=== PATIENT | female | born 1995 | race Caucasian/White ===

== ENCOUNTER 2019-09-12 18:03 | Emergency (ER) | payer SELFPAY ==
--- OUTSIDE RECORDS SUMMARY | 2019-09-12 18:05 | XMS REPORT ---
:1995 [facility] Address [address] [place] [address] [address] [place] [address] Care Team Providers Name Role Phone Unavailable Unavailable Unavailable Problems This patient has no known problems. Allergies, Adverse Reactions, Alerts This patient has no known allergies or adverse reactions. Medications This patient has no known medications.
[2019-09-12 19:03] LABS: Basophils % 0.6 % (0-1.3); Hematocrit 32.6 % (36.0-45.0); Lymphocytes % 42.7 % (15.3-44.8); MPV 8.4 fL (7.6-11.3)
--- NOTE | 2019-09-12 19:09 | ER ---
Nurse's Notes [facility] Name: Romana Grover Age: 23 yrs Sex: Female : 1995 Arrival Date: 09/12/2019 Time: 18:07 Bed 30 Private MD: None, None Diagnosis: Herpesviral [herpes simplex] infections;Abnormal uterine and vaginal bleeding, unspecified Presentation: 09/12 18:19 Presenting complaint: Patient states: had a period for 5 months and rash in genital iw area X 2 weeks. 18:22 Transition of care: patient was not received from another setting of care. Onset of iw symptoms was March 2019. Risk Assessment: Do you want to hurt yourself or someone else? Patient reports no desire to harm self or others. Initial Sepsis Screen: Does the patient meet any 2 criteria? No. Patient's initial sepsis screen is negative. Does the patient have a suspected source of infection? No. Patient's initial sepsis screen is negative. Care prior to arrival: None. 18:22 Method Of Arrival: Ambulatory iw 18:22 Acuity: JES 4 iw Triage Assessment: 19:15 General: Appears in no apparent distress. Behavior is calm. 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 - Ebola Screening: : Patient negative for fever greater than or equal to 101.5 degrees Fahrenheit, and additional compatible Ebola Virus Disease symptoms Patient denies exposure to infectious person Patient denies travel to an Ebola-affected area in the 21 days before illness onset No symptoms or risks identified at this time. - Social history:: Smoking status: unknown. Screenin:10 Abuse screen: Denies threats or abuse. Denies injuries from another. Nutritional iw screening: No deficits noted. Tuberculosis screening: No symptoms or risk factors identified. Fall Risk None identified. Assessment: 18:35 General: Appears in no apparent distress. Behavior is calm, cooperative. Pain: iw Complains of pain in pelvis and groin. Neuro: Level of Consciousness is awake, alert, obeys commands, Oriented to person, place, time, situation, Moves all extremities. Full function. Cardiovascular: Patient's skin is warm and dry. Respiratory: Respiratory effort is even, unlabored, Respiratory pattern is regular. Derm: Skin is intact, is healthy with good turgor. Musculoskeletal: Range of motion: intact in all extremities. Vital Signs: 18:32 BP 116 / 73; Pulse 88; Resp 16; Temp 97.7; Pulse Ox 99% on R/A; Weight 99.79 kg; Height iw 5 ft. 6 in. (167.64 cm); 18:34 BP 120 / 65 Supine; Pulse 75; Resp 18; Pulse Ox 100% on R/A; mg2 18:34 BP 123 / 73 Sitting; Pulse 81; Resp 18; Pulse Ox 100% on R/A; mg2 18:34 BP 114 / 63 Standing; Pulse 95; Resp 18; Pulse Ox 100% on R/A; mg2 18:32 Body Mass Index 35.51 (99.79 kg, 167.64 cm) iw ED Course: 18:07 Patient arrived in ED. mr 18:07 None, None is Private Physician. mr 18:08 [facility] kb 18:08 Hugo Rowan MD is Attending Physician. kb 18:18 Leyda Fowler, ALEX is Primary Nurse. iw 18:23 Triage completed. iw 18:35 Arm band placed on. iw 19:00 Patient has correct armband on for positive identification. mg2 19:15 No provider procedures requiring assistance completed. Patient did not have IV access iw during this emergency room visit. Administered Medications: 19:14 Drug: Valtrex 1000 mg Route: PO; mg2 19:16 Follow up: Response: No adverse reaction; Medication administered at discharge. mg2 Outcome: 19:08 Discharge ordered by . kb 19:15 Discharged to home ambulatory, with family. iw 19:15 Condition: good 19:15 Discharge instructions given to patient, family, Instructed on discharge instructions, follow up and referral plans. medication usage, Demonstrated understanding of instructions, follow-up care, medications, Prescriptions given X 1. 19:16 Patient left the ED. mg2 Signatures: Nat Waggoner FNP-C FNP-Moy Helen Morrow mr Leyda Fowler, RN RN iw Sidney Singh RN RN mg2 Corrections: (The following items were deleted from the chart) 18:23 18:19 Presenting complaint: Patient states: had a period for 5 months iw iw
--- NOTE | 2019-09-12 19:09 | EDPHYS ---
Physician Documentation [facility] Name: Romana Grover Age: 23 yrs Sex: Female : 1995 Arrival Date: 09/12/2019 Time: 18:07 Bed 30 Private MD: None, None ED Physician Hugo Rowan HPI: 09/12 19:06 This 23 yrs old Female presents to ER via Ambulatory with complaints of kb Vaginal Pain. 19:06 The patient presents with vaginal bleeding that is moderate, rash/pain. Onset: The kb symptoms/episode began/occurred 5 month(s) ago. Modifying factors: The symptoms are alleviated by nothing, the symptoms are aggravated by movement. Associated signs and symptoms: Pertinent positives: vaginal bleeding. Severity of symptoms: At their worst the symptoms were moderate, in the emergency department the symptoms are unchanged. The patient is sexually active, reportedly has a single partner. The patient has not experienced similar symptoms in the past. The patient has not recently seen a physician. Pt reports she has been on her period for 5 months. States she developed a rash 2 weeks ago that is getting worse. Came in today because the pain from the rash was intolerable. . 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 - Ebola Screening: : Patient negative for fever greater than or equal to 101.5 degrees Fahrenheit, and additional compatible Ebola Virus Disease symptoms Patient denies exposure to infectious person Patient denies travel to an Ebola-affected area in the 21 days before illness onset No symptoms or risks identified at this time. - Social history:: Smoking status: unknown. ROS: 19:05 Constitutional: Negative for fever, chills, and weight loss, Neck: Negative for injury, kb pain, and swelling, Cardiovascular: Negative for chest pain, palpitations, and edema, Respiratory: Negative for shortness of breath, cough, wheezing, and pleuritic chest pain, Abdomen/GI: Negative for abdominal pain, nausea, vomiting, diarrhea, and constipation, Back: Negative for injury and pain, MS/Extremity: Negative for injury and deformity, Skin: Negative for injury, rash, and discoloration, Neuro: Negative for headache, weakness, numbness, tingling, and seizure. 19:05 : Positive for menstrual abnormality, vaginal rash/pain. Exam: 19:05 Constitutional: This is a well developed, well nourished patient who is awake, alert, kb and in no acute distress. Head/Face: Normocephalic, atraumatic. Neck: Trachea midline, no thyromegaly or masses palpated, and no cervical lymphadenopathy. Supple, full range of motion without nuchal rigidity, or vertebral point tenderness. No Meningismus. Chest/axilla: Normal chest wall appearance and motion. Nontender with no deformity. No lesions are appreciated. Cardiovascular: Regular rate and rhythm with a normal S1 and S2. No gallops, murmurs, or rubs. Normal PMI, no JVD. No pulse deficits. Respiratory: Lungs have equal breath sounds bilaterally, clear to auscultation and percussion. No rales, rhonchi or wheezes noted. No increased work of breathing, no retractions or nasal flaring. Abdomen/GI: Soft, non-tender, with normal bowel sounds. No distension or tympany. No guarding or rebound. No evidence of tenderness throughout. Back: No spinal tenderness. No costovertebral tenderness. Full range of motion. MS/ Extremity: Pulses equal, no cyanosis. Neurovascular intact. Full, normal range of motion. Neuro: Awake and alert, GCS 15, oriented to person, place, time, and situation. Cranial nerves II-XII grossly intact. Motor strength 5/5 in all extremities. Sensory grossly intact. Cerebellar exam normal. Normal gait. 19:05 Skin: rash can be described as ulcerative, on the groin. Vital Signs: 18:32 BP 116 / 73; Pulse 88; Resp 16; Temp 97.7; Pulse Ox 99% on R/A; Weight 99.79 kg; Height iw 5 ft. 6 in. (167.64 cm); 18:34 BP 120 / 65 Supine; Pulse 75; Resp 18; Pulse Ox 100% on R/A; mg2 18:34 BP 123 / 73 Sitting; Pulse 81; Resp 18; Pulse Ox 100% on R/A; mg2 18:34 BP 114 / 63 Standing; Pulse 95; Resp 18; Pulse Ox 100% on R/A; mg2 18:32 Body Mass Index 35.51 (99.79 kg, 167.64 cm) MDM: 18:08 Patient medically screened. kb 19:00 Data reviewed: vital signs, nurses notes. Data interpreted: Pulse oximetry: on room air kb is 100 %. Interpretation: normal. ED course: Blood drawn and sent to lab . 19:05 Counseling: I had a detailed discussion with the patient and/or guardian regarding: the kb historical points, exam findings, and any diagnostic results supporting the discharge/admit diagnosis, lab results, the need for outpatient follow up, an OB/Gyne specialist, to return to the emergency department if symptoms worsen or persist or if there are any questions or concerns that arise at home. 09/12 18:36 Order name: CBC with Diff; Complete Time: 19:05 kb 09/12 18:18 Order name: Orthostatics; Complete Time: 18:33 kb Administered Medications: 19:14 Drug: Valtrex 1000 mg Route: PO; mg2 19:16 Follow up: Response: No adverse reaction; Medication administered at discharge. mg2 Disposition: 09/12/19 19:08 Discharged to Home. Impression: Herpesviral [herpes simplex] infections, Abnormal uterine and vaginal bleeding, unspecified. - Condition is Stable. - Discharge Instructions: Genital Herpes, Menorrhagia, [id number]. - Prescriptions for Valtrex 1 g Oral Tablet - take 1 tablet by ORAL route every 12 hours for 10 days; 20 tablet. - Medication Reconciliation Form, Thank You Letter, Antibiotic Education, Prescription Opioid Use form. - Follow up: Private Physician; When: 2 - 3 days; Reason: Recheck today's complaints, Continuance of care, Re-evaluation by your physician. Follow up: Emergency Department; When: As needed; Reason: Worsening of condition. Addendum: 09/18/2019 07:07 Co-signature as Attending Physician, Hugo Rowan MD. r n Signatures: Dispatcher [employer] EDMS Nat Waggoner, TONY-Haley CANALESP-Leyda Smalls RN RN iw Nieto, Roman, MD MD rn Gardose, Michele, RN RN mg2 Corrections: (The following items were deleted from the chart) 09/12 19:16 19:08 09/12/2019 19:08 Discharged to Home. Impression: Herpesviral [herpes simplex] mg2 infections; Abnormal uterine and vaginal bleeding, unspecified. Condition is Stable. Discharge Instructions: Genital Herpes, Menorrhagia, [id number]. Prescriptions for Valtrex 1 g Oral Tablet - take 1 tablet by ORAL route every 12 hours for 10 days; 20 tablet. and Forms are Medication Reconciliation Form, Thank You Letter, Antibiotic Education, Prescription Opioid Use. Follow up: Private Physician; When: 2 - 3 days; Reason: Recheck today's complaints, Continuance of care, Re-evaluation by your physician. Follow up: Emergency Department; When: As needed; Reason: Worsening of condition. kb
[2019-09-12] MEDS ORDERED: VALACYCLOVIR 500 MG TAB ONE (19:13)
[2019-09-12 22:15] VITALS: BP 114/63; O2SAT 100
[2019-09-12 22:35] VITALS: TEMP 97.7
== END 2019-09-12 19:16 | disposition home or self-care (01) ==
LOC: ER 18:03
DX: B00.9 Herpesviral infection, unspecified (principal); N93.9 Abnormal uterine and vaginal bleeding, unspecified; Z88.0 Allergy status to penicillin; Z88.6 Allergy status to analgesic agent
CPT/HCPCS: 36415; 85025; 99283

== ENCOUNTER 2022-12-03 12:16 | Emergency (ER) | payer SELFPAY ==
--- OUTSIDE RECORDS SUMMARY | 2022-12-03 12:42 | XMS REPORT | Continuity of Care Document ---
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 HEMOGLOBIN A1c (test code = 69572) 4.8 % 4.2-5.6 HEPATITIS PANEL, [id number] 04:33:58 Test Item Value Reference Interpretation Comments Range HEPATITIS A TOTAL REACTIVE NON-REACTIVE A AB (test code = 2725) HEPATITIS B SURF AG NON-REACTIVE NON-REACTIVE (test code = 2739) HEP B CORE TOTAL AB NON-REACTIVE NON-REACTIVE (test code = 2729) HEPATITIS B SURFACE REACTIVE NON-REACTIVE A AB (test code = 2737) HEPATITIS C NON-REACTIVE NON-REACTIVE ANTIBODY (test code = 4675) INTERPRETATION (NOTE) Hepatitis A serology HEPATITIS A: (test consisten t with past code = 2552) exposure or previousvaccina tion to hepatitis A vir us. No evidence of cur rent acutehepatitis A infection. INTERPRETATION (NOTE) Hepatitis B serology HEPATITIS B: (test consisten t with immunity code = 50812) to hepatitis B from previous hepati tis B vaccination. INTERPRETATION (NOTE) Hepatitis C serology HEPATITIS C: (test shows no evidence of code = 42324) exposure to he patitisC virus at this t manuel. It can take up to 12 months after exposure tothe hepatitis C vir us for antibodies to b ecome detectable in t he blood in certain tavo ents. HEPATITIS A [id number] 04:33:58 Test Item Value Reference Range Interpretation Comments HEPATITIS A IgM NON-REACTIVE NON-REACTIVE UNLESS OTHE RWISE (test code = 2728) INDICATED , ALL TESTING PERFORMED [facility], [facility]. [address] [place] [address] DIRECTOR: MICHAEL GUTIERREZ M.D. CLIA NUMBER [id number] CAP ACCREDITATION N O. [id number] CBC W/AUTO DIFF WITH [id number] 04:24:39 Test Item Value Reference Range Interpretation Comments WBC (test code = 5.1 K/UL 3.5-11.0 1001) RBC (test code = 4.81 M/UL 3.80-5.40 1002) HEMOGLOBIN (test code 13.5 G/DL 11.5-15.5 = 1003) HEMATOCRIT (test code 39.5 % 34.0-45.0 = 1004) MCV (test code = 82.1 fL 80.0-99.0 1005) MCH (test code = 28.1 PG 25.0-33.0 1006) MCHC (test code = 34.2 G/DL 31.0-36.0 1007) RDW (test code = 13.1 % 11.5-15.0 1038) NEUTROPHILS (test 53.4 % code = 1008) LYMPHOCYTES (test 38.5 % code = 1010) MONOCYTES (test code 6.1 % = 1011) EOSINOPHILS (test 1.0 % code = 1012) BASOPHILS (test code 0.4 % = 1013) IMMATURE GRANULOCYTES 0.6 % (test code = 1036) NUCLEATED RBCS (test 0.0 /100 WBC'S See_Comment [Aut omated code = 1065) message] The sy stem which generated this result transmitted reference range : 0.0. The refere nce range was not u sed to interpret th is result as normal/abnormal . PLATELET COUNT (test 291 K/UL 130-400 code = 1015) ABSOLUTE NEUTROPHILS 2.74 K/UL 1.50-7.50 (test code = 1066) ABSOLUTE LYMPHOCYTES 1.97 K/UL 1.00-4.00 (test code = 1067) ABSOLUTE MONOCYTES 0.31 K/UL 0.20-1.00 (test code = 1068) ABSOLUTE EOSINOPHILS 0.05 K/UL 0.00-0.50 (test code = 1040) ABSOLUTE BASOPHILS 0.02 K/UL 0.00-0.20 (test code = 1069) ABS IMMATURE 0.03 K/UL 0.00-0.10 GRANULOCYTES (test code = 1020) ABS NUCLEATED RBCS 0.00 K/UL 0.00-0.11 (test code = 98862) CT, [id number] 21:27:00Unlisted Reason for Exam - Click Yes and Enter Reason Below->YesUnlisted Reason for Exam->diarrheaIs this for enterography?->NoWill this procedure require oral contrast?->No [facility] 1995 Sex: FFINAL REPORT TECHNIQUE: CT of the abdomen and pelvis WITH intravenous contrast and WITHOUT oral contrast. Dose modulation, iterative reconstruction, and/or weight-based adjustment of the mA/kV was utilized to reduce the radiation dose to as low as reasonably achievable. INDICATION: Abdominal pain, acute, nonlocalizedUnlisted Reason for Examdiarrhea. COMPARISON: None. FINDINGS: LOWER THORAX: Unremarkable. HEPATOBILIARY: No focal hepatic lesions. Gallbladder is unremarkable. No abnormal biliary ductal dilatation.SPLEEN: Splenomegaly with spleen measuring 14.2 cm in craniocaudal dimension.ADRENALS: No adrenal nodules. PANCREAS: No focal masses or ductal dilatation.LYMPH NODES: No lymphadenopathy.KIDNEYS/URETERS: No hydronephrosis, stones, or masses.PELVIC ORGANS/BLADDER: Unremarkable. VESSELS: Unremarkable.PERITONEUM/RETROPERITONEUM: No free air or fluid. GI TRACT: No distention or wall thickening. Normal appendix. BONES AND SOFT TISSUES: Unremarkable. IMPRESSION: 1. Splenomegaly.2. No renal, ureteral or bladder stone.3. Normal appendix. Signed: Jose Marrero MDReport Verified Date/Time: 01/30/2022 21:27:26 [id number] 20:47:10 Test Item Value Reference Range Interpretation Comments LIPASE (BEAKER) (test code = 749) 15 U/L 6-51 Head Of Partner Development ID - [id number] ID - [id number] ID - [id number] ID - [id number] ID - [id number] METABOLIC [id number] 20:47:04 Test Item Value Reference Range Interpretation Comments TOTAL PROTEIN 7.0 gm/dL 6.0-8.5 (BEAKER) (test code = 770) ALBUMIN (BEAKER) 4.0 g/dL 3.5-5.0 (test code = 1145) ALKALINE PHOSPHATASE 90 U/L 30-115 (BEAKER) (test code = 346) BILIRUBIN TOTAL 0.6 mg/dL 0.1-1.2 (BEAKER) (test code = 377) SODIUM (BEAKER) (test 140 meq/L 135-148 code = 381) POTASSIUM (BEAKER) 3.7 meq/L 3.6-5.5 (test code = 379) CHLORIDE (BEAKER) 106 meq/L 98-106 (test code = 382) CO2 (BEAKER) (test 22 meq/L 20-29 code = 355) BLOOD UREA NITROGEN 7 mg/dL 10-26 L (BEAKER) (test code = 354) CREATININE (BEAKER) 0.74 mg/dL 0.50-1.20 (test code = 358) GLUCOSE RANDOM 78 mg/dL 70-110 (BEAKER) (test code = 652) CALCIUM (BEAKER) 8.5 mg/dL 8.5-10.5 (test code = 697) AST (SGOT) (BEAKER) 42 U/L 5-40 H (test code = 353) ALT (SGPT) (BEAKER) 75 U/L 5-50 H (test code = 347) EGFR (BEAKER) (test 95 mL/min/1.73 ESTIMA EDGARD GFR IS code = 1092) sq m NOT ACCURATE CREATININE CLEARANCE IN PREDICTING GLOMERULAR FILTRATION RATE . ESTIMATED GFR I S NOT APPLICABLE FOR DIALYSIS PATIEN TS. Head Of Partner Development ID - [id number] ID - [id number] ID - [id number] ID - [id number] ID - [id number] ID - [id number] ID - [id number] ID - [id number] ID - [id number] ID - [id number] ID - [id number] ID - [id number] ID - [id number] ID - [id number] ID - [id number] ID - [id number], serum, [id number] 20:25:43 Test Item Value Reference Range Interpretation Comments Preg Test, Serum (test code = Negative 2109-) [facility] serum, [id number] 20:25:43 Test Item Value Reference Range Interpretation Comments Preg Test, Serum (test code = Negative 0-5) [facility], SERUM, [id number] 20:25:43 Test Item Value Reference Range Interpretation Comments TEST SERUM (BEAKER) (test Negative code = 584) Urinalysis [id number] 20:22:15 Test Item Value Reference Range Interpretation Comments Color, UA (test code = Yellow 5778-6) Clarity, UA (test code = Clear 5767-9) Specific [place], UA 1.025 1.001-1.035 (test code = 5811-5) pH, UA (test code = 6.0 5.0-8.0 5803-2) Protein, UA (test code = Negative Negative 16713-2) Glucose, UA (test code = Negative Negative 365) Ketones, UA (test code = Negative Negative 2514-8) Bilirubin, UA (test code Negative Negative = 10592-8) Blood, UA (test code = Negative Negative 01151-6) Nitrite, UA (test code = Negative Negative 5802-4) Leukocytes, UA (test Small Negative A code = 5799-2) Urobilinogen, UA (test 1.0 mg/dL 0.2-1.0 code = 35777-7) Bacteria, UA (test code Few = 42810-0) Mucus (test code = Moderate 8247-9) RBC, UA (test code = <5 See_Comment [Autom ated message] 799-7) The system Serviceful generated this result transmit edgard reference range : /HPF. The refer ence range was not u sed to interpret th is result as normal/abnormal . WBC, UA (test code = 5-10 See_Comment [Autom ated message] 91020-8) The system Serviceful generated this result transmit edgard reference range : /HPF. The refer ence range was not u sed to interpret th is result as normal/abnormal . SQUAMOUS EPITHELIAL 5-10 See_Comment [Automa edgard message] (test code = 04384-7) The sy stem which generated this result transmit edgard reference range : /HPF. The refer ence range was not u sed to interpret th is result as normal/abnormal . Specimen Source (test code = 2795) Lab Interpretation (test Abnormal code = 52040-9) [facility]inalysis [id number] 20:22:15 Test Item Value Reference Range Interpretation Comments Color, UA (test code = Yellow 5778-6) Clarity, UA (test code = Clear 5767-9) Specific [place], UA 1.025 1.001-1.035 (test code = 5811-5) pH, UA (test code = 6.0 5.0-8.0 5803-2) Protein, UA (test code = Negative Negative 99194-4) Glucose, UA (test code = Negative Negative 365) Ketones, UA (test code = Negative Negative 2514-8) Bilirubin, UA (test code Negative Negative = 14659-8) Blood, UA (test code = Negative Negative 25873-4) Nitrite, UA (test code = Negative Negative 5802-4) Leukocytes, UA (test Small Negative A code = 5799-2) Urobilinogen, UA (test 1.0 mg/dL 0.2-1.0 code = 97746-0) Bacteria, UA (test code Few = 28946-4) Mucus (test code = Moderate 8247-9) RBC, UA (test code = <5 See_Comment [Autom ated message] 799-7) The system Serviceful generated this result transmit edgard reference range : /HPF. The refer ence range was not u sed to interpret th is result as normal/abnormal . WBC, UA (test code = 5-10 See_Comment [Autom ated message] 21658-1) The system Serviceful generated this result transmit edgard reference range : /HPF. The refer ence range was not u sed to interpret th is result as normal/abnormal . SQUAMOUS EPITHELIAL 5-10 See_Comment [Automa edgard message] (test code = 33431-6) The sy stem which generated this result transmit edgard reference range : /HPF. The refer ence range was not u sed to interpret th is result as normal/abnormal . Specimen Source (test code = 2795) Lab Interpretation (test Abnormal code = 61796-0) [facility] W/ [id number] 20:22:15 Test Item Value Reference Range Interpretation Comments COLOR (BEAKER) (test code = 470) Yellow CLARITY (BEAKER) (test code = 469) Clear SPECIFIC GRAVITY UA (BEAKER) (test 1.025 1.001-1.035 code = 468) PH UA (BEAKER) (test code = 467) 6.0 5.0-8.0 PROTEIN UA (BEAKER) (test code = Negative Negative 464) GLUCOSE UA (BEAKER) (test code = Negative Negative 365) KETONES UA (BEAKER) (test code = Negative Negative 371) BILIRUBIN UA (BEAKER) (test code = Negative Negative 462) BLOOD UA (BEAKER) (test code = 461) Negative Negative NITRITE UA (BEAKER) (test code = Negative Negative 465) LEUKOCYTE ESTERASE UA (BEAKER) Small Negative A (test code = 466) UROBILINOGEN UA (BEAKER) (test code 1.0 mg/dL 0.2-1.0 = 463) BACTERIA (BEAKER) (test code = 517) Few MUCUS (BEAKER) (test code = 1574) Moderate RBC UA-MANUAL (BEAKER) (test code = <5 /HPF 1659) WBC UA-MANUAL (BEAKER) (test code = 5-10 /HPF 1661) SQUAMOUS EPITHELIAL MANUAL (BEAKER) 5-10 /HPF (test code = 1663) SOURCE(BEAKER) (test code = 2205) CBC W/PLT COUNT & AUTO [id number] 20:05:38 Test Item Value Reference Range Interpretation Comments WHITE BLOOD CELL COUNT (BEAKER) 5.1 K/ L 4.0-10.0 (test code = 775) RED BLOOD CELL COUNT (BEAKER) 4.11 M/ L 4.00-5.00 (test code = 761) HEMOGLOBIN (BEAKER) (test code = 11.7 GM/DL 12.0-15.5 L 410) HEMATOCRIT (BEAKER) (test code = 33.8 % 36.0-46.0 L 411) MEAN CORPUSCULAR VOLUME (BEAKER) 82.2 fL 82.0-99.0 (test code = 753) MEAN CORPUSCULAR HEMOGLOBIN 28.5 pg 27.0-33.0 (BEAKER) (test code = 751) MEAN CORPUSCULAR HEMOGLOBIN CONC 34.6 GM/DL 32.0-36.0 (BEAKER) (test code = 752) RED CELL DISTRIBUTION WIDTH 12.7 % 12.0-15.0 (BEAKER) (test code = 412) PLATELET COUNT (BEAKER) (test 257 K/CU MM 150-430 code = 756) MEAN PLATELET VOLUME (BEAKER) 9.9 fL 6.0-11.5 (test code = 754) NUCLEATED RED BLOOD CELLS 0 /100 WBC 0-0 (BEAKER) (test code = 413) NEUTROPHILS RELATIVE PERCENT 54 % (BEAKER) (test code = 429) LYMPHOCYTES RELATIVE PERCENT 37 % (BEAKER) (test code = 430) MONOCYTES RELATIVE PERCENT 7 % (BEAKER) (test code = 431) EOSINOPHILS RELATIVE PERCENT 1 % (BEAKER) (test code = 432) BASOPHILS RELATIVE PERCENT 0 % (BEAKER) (test code = 437) NEUTROPHILS ABSOLUTE COUNT 2.75 K/ L 1.80-8.00 (BEAKER) (test code = 670) LYMPHOCYTES ABSOLUTE COUNT 1.87 K/ L 1.48-4.50 (BEAKER) (test code = 414) MONOCYTES ABSOLUTE COUNT (BEAKER) 0.33 K/ L 0.00-1.30 (test code = 415) EOSINOPHILS ABSOLUTE COUNT 0.06 K/ L 0.00-0.50 (BEAKER) (test code = 416) BASOPHILS ABSOLUTE COUNT (BEAKER) 0.02 K/ L 0.00-0.20 (test code = 417) IMMATURE GRANULOCYTES-RELATIVE 1 % 0-0 H PERCENT (BEAKER) (test code = 2801) POCT [id number] 15:25:00 Test Item Value Reference Range Interpretation Comments POCT PREG (test code = 1605) Negative On board controls acceptable with C Yes Line (test code = 3574) POCT PREG LOT # (test code = 3575) POCT PREG TEST DATE (test code = 3576) [id number] 15:25:00 Test Item Value Reference Range Interpretation Comments POCT PREG (test code = 1605) Negative On board controls acceptable with C Yes Line (test code = 3574) POCT PREG LOT # (test code = 3575) POCT PREG TEST DATE (test code = 3576) [facility]
--- NOTE | 2022-12-03 14:07 | RAD REPORT ---
EXAM DESCRIPTION: RAD - Foot Left 3 View - 12/03/2022 1:39 pm CLINICAL HISTORY: foot pain COMPARISON: No comparisons FINDINGS: No bone or joint abnormality.
[2022-12-03 17:11] VITALS: BP 118/71; TEMP 98.2; O2SAT 100
--- NOTE | 2022-12-15 17:17 | ER ---
Nurse's Notes [facility] Name: Romana Grover Age: 26 yrs Sex: Female : 1995 Arrival Date: 12/03/2022 Time: 12:18 Bed IW1 Private MD: Diagnosis: Contusion of left foot Presentation: 12/03 12:26 Chief complaint: Patient states: [place] night [place] at the beach and had my dog kr3 tied to my ice chest and he took off and the ice chest handle caught my foot and now the toe is purple on the bottom and hurts. Coronavirus screen: Vaccine status: Patient reports receiving the 2nd dose of the covid vaccine. Ebola Screen: Patient denies travel to an Ebola-affected area in the 21 days before illness onset. 12:26 Method Of Arrival: Ambulatory kr3 12:31 Initial Sepsis Screen: Does the patient meet any 2 criteria? No. Patient's initial kr3 sepsis screen is negative. Does the patient have a suspected source of infection? No. Patient's initial sepsis screen is negative. Risk Assessment: Do you want to hurt yourself or someone else? Patient reports no desire to harm self or others. Onset of symptoms was December 03, 2022. 12:31 Acuity: JES 4 kr3 Triage Assessment: 12:33 General: Appears in no apparent distress. comfortable, Behavior is calm, cooperative, kr3 appropriate for age. Pain: Complains of pain in left third toe and Left third toenail. Historical: - Allergies: 12:32 PENICILLINS; kr3 - PMHx: 12:32 None; kr3 - PSHx: 12:32 section; kr3 - Immunization history:: Adult Immunizations up to date. - Social history:: Smoking status: Reported history of juuling and/or vaping. Screenin:01 [facility] ED Fall Risk Assessment (Adult) History of falling in the last 3 months, kr3 including since admission No falls in past 3 months (0 pts) Confusion or Disorientation No (0 pts) Intoxicated or Sedated No (0 pts) Impaired Gait No (0 pts) Mobility Assist Device Used No (0 pt) Altered Elimination No (0 pt) Score/Fall Risk Level 0 - 2 = Low Risk Oriented to surroundings, Maintained a safe environment, Educated pt \T\ family on fall prevention, incl call for assistance when getting out of bed, Assessed \T\ reinforced patient's understanding of fall precautions, Hourly rounding (assess needs \T\ fall precautionary measures) done. Abuse screen: Denies threats or abuse. Nutritional screening: No deficits noted. Tuberculosis screening: No symptoms or risk factors identified. Vital Signs: 12:26 BP 118 / 71; Pulse 73; Resp 18; Temp 98.2; Pulse Ox 100% on R/A; Weight 113.4 kg; kr3 Height 5 ft. 6 in. ; Pain 8/10; 12:26 Body Mass Index 40.35 (113.40 kg, 167.64 cm) kr3 12:26 Pain Scale: Adult kr3 ED Course: 12:18 Patient arrived in ED. am2 12:18 Yohannes Salmeron PA is PHCP. jmm 12:18 Eric Adhikari MD is Attending Physician. jmm 12:32 Triage completed. kr3 12:33 Arm band placed on right wrist. kr3 13:41 Foot Left 3 View XRAY In Process Unspecified. EDMS 15:02 Patient has correct armband on for positive identification. kr3 15:02 No provider procedures requiring assistance completed. Patient did not have IV access kr3 during this emergency room visit. Administered Medications: No medications were administered Medication: 15:02 VIS not applicable for this client. kr3 Outcome: 14:40 Discharge ordered by . jmm 15:02 Discharged to home ambulatory. kr3 15:02 Condition: stable 15:02 Discharge instructions given to patient, Instructed on discharge instructions, follow up and referral plans. medication usage, Demonstrated understanding of instructions, follow-up care, medications, Prescriptions given X 1. 15:03 Patient left the ED. kr3 Signatures: Dispatcher [employer] EDMS Yohannes Salmeron PA PA Melani Singleton am2 Noni Renae RN RN kr3 Corrections: (The following items were deleted from the chart) 12:32 12:32 Allergies: HYDROCODONE; kr3 kr3 12:33 12:32 Social history: Smoking status: Patient denies any tobacco usage or history of. kr3 kr3
--- NOTE | 2022-12-15 17:17 | EDPHYS ---
Physician Documentation [facility] Name: Romana Grover Age: 26 yrs Sex: Female : 1995 Arrival Date: 12/03/2022 Time: 12:18 Bed IW1 Private MD: ED Physician Eric Adhikari HPI: 12/03 12:35 This 26 yrs old Female presents to ER via Ambulatory with complaints of Foot Pain, Leg jmm Pain. 12:35 The patient presents with an injury, pain, that is acute. Onset: The symptoms/episode jmm began/occurred acutely, last night. Modifying factors: The symptoms are alleviated by nothing. the symptoms are aggravated by nothing. This is a 26 year old female with no chronic medical conditions that presents to the ED with complaints of left foot pain beginning last night after hitting her foot against a pole. . Historical: - Allergies: 12:32 PENICILLINS; kr3 - PMHx: 12:32 None; kr3 - PSHx: 12:32 section; kr3 - Immunization history:: Adult Immunizations up to date. - Social history:: Smoking status: Reported history of juuling and/or vaping. ROS: 12:35 Constitutional: Negative for fever, chills, and weight loss, Cardiovascular: Negative jmm for chest pain, palpitations, and edema, Respiratory: Negative for shortness of breath, cough, wheezing, and pleuritic chest pain. 12:35 All other systems are negative. Exam: 12:35 Constitutional: This is a well developed, well nourished patient who is awake, alert, jmm and in no acute distress. Head/Face: atraumatic. Eyes: EOMI, no conjunctival erythema appreciated ENT: Moist Mucus Membranes Neck: Trachea midline, Supple Chest/axilla: Normal chest wall appearance and motion. Cardiovascular: Regular rate and rhythm. No edema appreciated Respiratory: Normal respirations, no respiratory distress appreciated Abdomen/GI: Non distended Back: Normal ROM Skin: General appearance color normal 12:35 Musculoskeletal/extremity: ecchymosis noted to the dorsum on the left foot, compartments are soft. NVI. 12:35 Skin: Appearance: Color: normal in color. 12:35 Neuro: Orientation: is normal, Mentation: is normal, Memory: is normal. 12:35 Psych: Behavior/mood is pleasant, cooperative. Vital Signs: 12:26 BP 118 / 71; Pulse 73; Resp 18; Temp 98.2; Pulse Ox 100% on R/A; Weight 113.4 kg; kr3 Height 5 ft. 6 in. ; Pain 8/10; 12:26 Body Mass Index 40.35 (113.40 kg, 167.64 cm) kr3 12:26 Pain Scale: Adult kr3 MDM: 12:35 Patient medically screened. [facility] 14:38 Differential diagnosis: closed fracture, contusion. Data reviewed: vital signs, nurses [facility] notes. I considered the following discharge prescriptions or medication management in the emergency department Medications were administered in the Emergency Department. See MAR. Independent interpretation of the following test(s) in the Emergency Department X-Ray: My interpretation is no fracture. Counseling: I had a detailed discussion with the patient and/or guardian regarding: the historical points, exam findings, and any diagnostic results supporting the discharge/admit diagnosis, radiology results, the need for outpatient follow up, to return to the emergency department if symptoms worsen or persist or if there are any questions or concerns that arise at home. ED course: Xray negative. patient advised to follow up with pcp and otherwise given strict return precautions. patient understood and agrees with the plan of care. . 12/03 12:38 Order name: Foot Left 3 View XRAY; Complete Time: 14:08 [facility] 12/03 14:54 Order name: Crutches; Complete Time: 15:01 [facility] Administered Medications: No medications were administered Disposition: 16:51 Co-signature as Attending Physician, Eric Adhikari MD I reviewed the patient's care rt provided by the Advanced Practice Provider and agree with the diagnosis and treatment plan. Disposition Summary: 12/03/22 14:40 Discharge Ordered Location: Home [facility] Condition: Stable [facility] Diagnosis - Contusion of left foot [facility] Followup: [facility] - With: Private Physician - When: 2 - 3 days - Reason: Recheck today's complaints, Continuance of care, Re-evaluation by your physician Discharge Instructions: - Discharge Summary Sheet [facility] - Foot Contusion [facility] Forms: - Medication Reconciliation Form [facility] - Thank You Letter [facility] - Antibiotic Education [facility] - Prescription Opioid Use [facility] Prescriptions: - Diclofenac Sodium 75 mg Oral Tablet Sustained Release - take 1 tablet by ORAL route 2 times per day; 30 tablet; Refills: 0, Product jmm Selection Permitted Signatures: Dispatcher [employer] EDMS Yohannes Salmeron PA PA jmm Reid, Kelley, RN RN kr3 Eric Adhikari MD MD rt Corrections: (The following items were deleted from the chart) 12:32 12:32 Allergies: HYDROCODONE; kr3 kr3 12:33 12:32 Social history: Smoking status: Patient denies any tobacco usage or history of. kr3 kr3
== END 2022-12-03 15:03 | disposition home or self-care (01) ==
LOC: ER 12:16
DX: S90.32XA Contusion of left foot, initial encounter (principal)
CPT/HCPCS: 99283

== ENCOUNTER 2023-01-18 22:33 | Emergency (ER) | payer SELFPAY ==
--- OUTSIDE RECORDS SUMMARY | 2023-01-18 22:37 | XMS REPORT | Continuity of Care Document ---
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 [id number] 21:27:00Unlisted Reason for Exam - Click Yes and Enter Reason Below->YesUnlisted Reason for Exam->diarrheaIs this for enterography?->NoWill this procedure require oral contrast?->No [facility]IO : 1995 Sex: FFINAL REPORT TECHNIQUE: CT [...] Jose Marrero MDReport Verified Date/Time: 01/30/2022 21:27:26 [id number] 20:47:10 Test Item Value Reference Range Interpretation Comments LIPASE (BEAKER) (test code = 749) 15 U/L 6-51 Director Of Maternity Services ID - [id number] ID - [id number] ID - [id number] ID - [id number] ID - [id number] METABOLIC [id number] 20:47:04 Test Item Value Reference Range Interpretation [...] S NOT APPLICABLE FOR DIALYSIS PATIEN TS. Director Of Maternity Services ID - [id number] ID - [id number] ID - [id number] ID - [id number] ID - [id number] ID - [id number] ID - [id number] ID - [id number] ID - [id number] ID - [id number] ID - [id number] ID - [id number] ID - [id number] ID - [id number] ID - [id number] ID - [id number], serum, [id number] 20:25:43 Test Item Value Reference Range Interpretation Comments Preg Test, Serum (test code = Negative 2110-01) [facility], serum, [id number] 20:25:43 Test Item Value Reference Range Interpretation Comments Preg Test, Serum (test code = Negative 2110-01) [facility], serum, [id number] 20:25:43 Test Item Value Reference Range Interpretation Comments Preg Test, Serum (test code = Negative 2110-01) [facility], SERUM, [id number] 20:25:43 Test Item Value Reference Range Interpretation Comments TEST SERUM (BEAKER) (test Negative code = 584) Urinalysis w/[id number] 20:22:15 Test Item Value Reference Range Interpretation Comments Color, UA (test code = Yellow 5778-6) Clarity, UA (test code = Clear 5767-9) Specific [place], UA 1.025 1.001-1.035 (test code = 5811-5) pH, UA (test code = 6.0 5.0-8.0 5803-2) Protein, UA (test code = Negative Negative 96975-5) Glucose, UA (test code = Negative Negative 365) Ketones, UA (test code = Negative Negative 2514-8) Bilirubin, UA (test code Negative Negative = 55274-8) Blood, UA (test code = Negative Negative 77630-1) Nitrite, UA (test code = Negative Negative 5802-4) Leukocytes, UA (test Small Negative A code = 5799-2) Urobilinogen, UA (test 1.0 mg/dL 0.2-1.0 code = 74468-2) Bacteria, UA (test code Few = 19546-1) Mucus (test code = Moderate 8247-9) RBC, UA (test code = <5 See_Comment [Autom ated message] 799-7) The system [employer] generated this result transmit edgard reference range : /HPF. The refer ence range was not u sed to interpret th is result as normal/abnormal . WBC, UA (test code = 5-10 See_Comment [Autom ated message] 87312-8) The system [employer] generated this result transmit edgard reference range : /HPF. The refer ence range was not u sed to interpret th is result as normal/abnormal . SQUAMOUS EPITHELIAL 5-10 See_Comment [Automa edgard message] (test code = 86190-6) The sy stem which generated this result transmit edgard reference range : /HPF. The refer ence range was not u sed to interpret th is result as normal/abnormal . Specimen Source (test code = 2795) Lab Interpretation (test Abnormal code = 29876-9) [facility]/[id number] 20:22:15 Test Item Value Reference Range Interpretation Comments Color, UA (test code = Yellow 5778-6) Clarity, UA (test code = Clear 5767-9) Specific [place], UA 1.025 1.001-1.035 (test code = 5811-5) pH, UA (test code = 6.0 5.0-8.0 5803-2) Protein, UA (test code = Negative Negative 51545-3) Glucose, UA (test code = Negative Negative 365) Ketones, UA (test code = Negative Negative 2514-8) Bilirubin, UA (test code Negative Negative = 87530-6) Blood, UA (test code = Negative Negative 85048-4) Nitrite, UA (test code = Negative Negative 5802-4) Leukocytes, UA (test Small Negative A code = 5799-2) Urobilinogen, UA (test 1.0 mg/dL 0.2-1.0 code = 25072-5) Bacteria, UA (test code Few = 54522-2) Mucus (test code = Moderate 8247-9) RBC, UA (test code = <5 See_Comment [Autom ated message] 799-7) The system [employer] generated this result transmit edgard reference range : /HPF. The refer ence range was not u sed to interpret th is result as normal/abnormal . WBC, UA (test code = 5-10 See_Comment [Autom ated message] 67563-0) The system [employer] generated this result transmit edgard reference range : /HPF. The refer ence range was not u sed to interpret th is result as normal/abnormal . SQUAMOUS EPITHELIAL 5-10 See_Comment [Automa edgard message] (test code = 36714-1) The sy stem which generated this result transmit edgard reference range : /HPF. The refer ence range was not u sed to interpret th is result as normal/abnormal . Specimen Source (test code = 2795) Lab Interpretation (test Abnormal code = 46318-5) [facility] w/[id number] 20:22:15 Test Item Value Reference Range Interpretation Comments Color, UA (test code = Yellow 5778-6) Clarity, UA (test code = Clear 5767-9) Specific [place], UA 1.025 1.001-1.035 (test code = 5811-5) pH, UA (test code = 6.0 5.0-8.0 5803-2) Protein, UA (test code = Negative Negative 77991-1) Glucose, UA (test code = Negative Negative 365) Ketones, UA (test code = Negative Negative 2514-8) Bilirubin, UA (test code Negative Negative = 30868-0) Blood, UA (test code = Negative Negative 71427-3) Nitrite, UA (test code = Negative Negative 5802-4) Leukocytes, UA (test Small Negative A code = 5799-2) Urobilinogen, UA (test 1.0 mg/dL 0.2-1.0 code = 06064-1) Bacteria, UA (test code Few = 25301-6) Mucus (test code = Moderate 8247-9) RBC, UA (test code = <5 See_Comment [Autom ated message] 799-7) The system [employer] generated this result transmit edgard reference range : /HPF. The refer ence range was not u sed to interpret th is result as normal/abnormal . WBC, UA (test code = 5-10 See_Comment [Autom ated message] 91956-5) The system whic h generated this result transmit edgard reference range : /HPF. The refer ence range was not u sed to interpret th is result as normal/abnormal . SQUAMOUS EPITHELIAL 5-10 See_Comment [Automa edgard message] (test code = 65245-3) The sy stem which generated this result transmit edgard reference range : /HPF. The refer ence range was not u sed to interpret th is result as normal/abnormal . Specimen Source (test code = 2795) Lab Interpretation (test Abnormal code = 07109-4) [facility]/ [id number] 20:22:15 Test Item Value Reference Range Interpretation [...] code = 1663) SOURCE(BEAKER) (test code = 2795) CBC W/PLT COUNT & AUTO [id number] 20:05:38 Test Item Value Reference Range Interpretation [...] PERCENT (BEAKER) (test code = 2801) POCT [id number] 15:25:00 Test Item Value Reference Range Interpretation Comments POCT PREG (test code = 1605) Negative On board controls acceptable with C Yes Line (test code = 3574) POCT PREG LOT # (test code = 3575) POCT PREG TEST DATE (test code = 3576) [id number] 15:25:00 Test Item Value Reference Range Interpretation Comments POCT PREG (test code = 1605) Negative On board controls acceptable with C Yes Line (test code = 3574) POCT PREG LOT # (test code = 3575) POCT PREG TEST DATE (test code = 3576) [facility]
[2023-01-18] MEDS ORDERED: HYDROMORPHONE HCL 1 MG/ML INJ ONE (23:44)
[2023-01-18] MEDS ORDERED: KETOROLAC 30 MG/ML INJ ONE (23:45)
[2023-01-18] MEDS ORDERED: dexAMETHasone 10 MG/ML VIAL ONE (23:45)
[2023-01-18] MEDS ORDERED: LIDOCAINE 4% PATCH ONE (23:47)
[2023-01-19 00:15] LABS: Specific Gravity > 1.030 (1.005-1.030); Urine Bacteria None Seen /HPF (<20); Urine Bilirubin NEGATIVE (Negative); Urine Blood Negative (Negative); Urine Clarity Clear (Clear); Urine Color Yellow (Yellow); Urine Glucose NEGATIVE (Negative); Urine Mucus 2+ /HPF (None Seen); Urine Protein 1+ (Negative); Urine RBC <5 /HPF (None Seen); Urine Urobilinogen 1+ (Normal)
[2023-01-19 00:17] LABS: Specific Gravity 1.038 (1.005-1.030)
--- NOTE | 2023-01-19 00:20 | EDPHYS ---
Physician Documentation [facility] Name: Romana Grover Age: 27 yrs Sex: Female : 1995 Arrival Date: 01/18/2023 Time: 22:33 Bed 18 Private MD: HEATHER Physician Tobi Contreras HPI: 01/18 23:25 This 27 yrs old Female presents to ER via Wheelchair with complaints of Back Pain. cp 23:25 The patient presents with pain acute on chronic low back pain. cp Historical: - Allergies: 22:46 PENICILLINS; mb9 - Home Meds: 22:46 None [Active]; mb9 - PMHx: 22:46 Irritable bowel syndrome; Enlarged liver; mb9 - PSHx: 22:46 section; mb9 - Immunization history:: Adult Immunizations up to date. - Social history:: Smoking status: Patient denies any tobacco usage or history of. Vital Signs: 22:44 BP 125 / 82; Pulse 97; Resp 20; Temp 98.8; Pulse Ox 98% on R/A; Weight 113.4 kg; Height mb9 5 ft. 6 in. ; Pain 10/10; 23:00 BP 122 / 50; Pulse 83; Resp 18 S; Pulse Ox 98% on R/A; ha1 01/19 00:00 BP 111 / 81; Pulse 80; Resp 17 S; Pulse Ox 98% on R/A; ha1 00:30 BP 120 / 75; Pulse 78; Resp 15 S; Pulse Ox 100% on R/A; 1 01/18 22:44 Body Mass Index 40.35 (113.40 kg, 167.64 cm) [facility] 01/18 22:44 Pain Scale: Adult mb9 MDM: 01/18 22:48 Patient medically screened. joe 01/18 23:25 Order name: Urinalysis W/Microscopic; Complete Time: 00:18 cp 01/19 00:18 Interpretation: Normal except: Urine SG > 1.030; UKET TRACE; UPROT 1+; UUROB 1+; UESTR cp 25. 01/18 23:25 Order name: PREGU; Complete Time: 00:18 cp Administered Medications: 23:55 Drug: HYDROmorphone IM 1 mg Route: IM; Site: right ventrogluteal; ha1 01/19 00:20 Follow up: Response: No adverse reaction; Pain is decreased; RASS: Alert and Calm (0) ha1 01/18 23:55 Drug: Ketorolac IM 30 mg Route: IM; Site: right deltoid; ha1 01/19 00:45 Follow up: Response: No adverse reaction ha1 00:00 Drug: Dexamethasone IM 10 mg Route: IM; Site: left ventrogluteal; ha1 00:20 Follow up: Response: No adverse reaction ha1 00:14 Drug: Lidoderm Topical Patch 5 % (700 mg/patch) 1 patches {Note: Lidocaine patch was ha1 administered as instructed by care provider. Lidoderm not in inventory..} Route: Topical; Site: right upper arm; 00:47 Follow up: Response: No adverse reaction ha1 Disposition Summary: 01/19/23 00:19 Discharge Ordered Location: Home cp Problem: an acute exacerbation cp Symptoms: have improved cp Condition: Stable cp Diagnosis - Radiculopathy, lumbar region cp - Low back pain cp Followup: cp - With: Private Physician - When: 1 - 2 days - Reason: Recheck today's complaints Discharge Instructions: - Discharge Summary Sheet cp - Chronic Back Pain cp - Lumbosacral Radiculopathy cp Forms: - Medication Reconciliation Form cp - Thank You Letter cp - Antibiotic Education cp - Prescription Opioid Use cp - Family Work Release Prescriptions: - Cyclobenzaprine 10 mg Oral Tablet - take 1 tablet by ORAL route every 8 hours As needed; 20 tablet; Refills: 0, cp Product Selection Permitted - Medrol (Manny) 4 mg Oral Tablets, Dose Pack - take 1 tablet by ORAL route as directed - follow package instructions; 1 cp packet; Refills: 0, Product Selection Permitted Signatures: Dispatcher [employer] EDTobi Hobbs MD MD cha Page, Corey, PA PA cp Norma Cool RN RN 1 Helen Hahn RN RN mb9 Corrections: (The following items were deleted from the chart) 01/18 22:47 22:46 PMHx: None; la cook9
--- NOTE | 2023-01-19 00:20 | ER ---
Nurse's Notes [facility] Name: Romana Grover Age: 27 yrs Sex: Female : 1995 Arrival Date: 01/18/2023 Time: 22:33 Bed 18 Private MD: Diagnosis: Radiculopathy, lumbar region;Low back pain Presentation: 01/18 22:44 Chief complaint: Patient states: "I had a procedure yesterday to get a epidural steroid mb9 shot between L3/L5. I started having pains around my lower back last night that is going down my left side and rotates to my right side every now and then. Today the pain has gotten worse. I've been continuously taking Ibuprofen. Just sitting here hurts". Coronavirus screen: Vaccine status: Patient reports receiving the 2nd dose of the covid vaccine. Ebola Screen: No symptoms or risks identified at this time. Initial Sepsis Screen: Does the patient meet any 2 criteria? No. Patient's initial sepsis screen is negative. Does the patient have a suspected source of infection? No. Patient's initial sepsis screen is negative. Risk Assessment: Do you want to hurt yourself or someone else? Patient reports no desire to harm self or others. Onset of symptoms was January 18, 2023. 22:44 Method Of Arrival: Wheelchair mb9 22:44 Acuity: JES 3 mb9 Triage Assessment: 22:47 General: Appears uncomfortable, Behavior is anxious. Pain: Complains of pain in back mb9 Pain radiates to left leg Quality of pain is described as throbbing, Pain began suddenly, Is continuous, Aggravated by increased activity, repositioning, weight bearing. Neuro: Level of Consciousness is awake, alert, obeys commands, Oriented to person, place, time, situation, Appropriate for age. Cardiovascular: Patient's skin is warm and dry. Respiratory: Airway is patent Respiratory effort is even, unlabored, Respiratory pattern is regular, symmetrical. Derm: Skin is pink, warm \\T\\ dry. Musculoskeletal: Range of motion: intact in all extremities. Historical: - Allergies: 22:46 PENICILLINS; mb9 - Home Meds: 22:46 None [Active]; mb9 - PMHx: 22:46 Irritable bowel syndrome; Enlarged liver; mb9 - PSHx: 22:46 section; mb9 - Immunization history:: Adult Immunizations up to date. - Social history:: Smoking status: Patient denies any tobacco usage or history of. Screenin:48 [facility] ED Fall Risk Assessment (Adult) History of falling in the last 3 months, ha1 including since admission No falls in past 3 months (0 pts) Confusion or Disorientation No (0 pts) Intoxicated or Sedated No (0 pts) Impaired Gait No (0 pts) Mobility Assist Device Used No (0 pt) Altered Elimination No (0 pt) Score/Fall Risk Level 0 - 2 = Low Risk Oriented to surroundings, Maintained a safe environment, Educated pt \\T\\ family on fall prevention, incl call for assistance when getting out of bed, Hourly rounding (assess needs \\T\\ fall precautionary measures) done. 23:30 Abuse screen: Denies threats or abuse. Denies injuries from another. Nutritional ha1 screening: No deficits noted. Tuberculosis screening: No symptoms or risk factors identified. Assessment: 22:50 General: Appears uncomfortable, Behavior is cooperative, anxious. Pain: Complains of ha1 pain in back Pain does not radiate. Pain currently is 10 out of 10 on a pain scale. Quality of pain is described as sharp, shooting, throbbing, Pain began suddenly, Alleviated by medications. Neuro: Level of Consciousness is awake, alert, obeys commands, Oriented to person, place, time, situation. Cardiovascular: Capillary refill < 3 seconds Patient's skin is warm and dry. Respiratory: Airway is patent Respiratory effort is even, unlabored, Respiratory pattern is regular, symmetrical. GI: No signs and/or symptoms were reported involving the gastrointestinal system. Abdomen is round distended. Derm: Skin is pink, warm \\T\\ dry. Musculoskeletal: Circulation, motion, and sensation intact. Range of motion: intact in all extremities, Reports pain in back. 23:50 Reassessment: Patient and/or family updated on plan of care and expected duration. Pain ha1 level reassessed. Patient is alert, oriented x 3, equal unlabored respirations, skin warm/dry/pink. 01/19 00:50 Reassessment: Patient and/or family updated on plan of care and expected duration. Pain ha1 level reassessed. Patient is alert, oriented x 3, equal unlabored respirations, skin warm/dry/pink. pain 3/10 Patient states feeling better. Patient states symptoms have improved. Vital Signs: 01/18 22:44 BP 125 / 82; Pulse 97; Resp 20; Temp 98.8; Pulse Ox 98% on R/A; Weight 113.4 kg; Height mb9 5 ft. 6 in. ; Pain 10/10; 23:00 BP 122 / 50; Pulse 83; Resp 18 S; Pulse Ox 98% on R/A; ha1 01/19 00:00 BP 111 / 81; Pulse 80; Resp 17 S; Pulse Ox 98% on R/A; ha1 00:30 BP 120 / 75; Pulse 78; Resp 15 S; Pulse Ox 100% on R/A; ha1 01/18 22:44 Body Mass Index 40.35 (113.40 kg, 167.64 cm) mb9 01/18 22:44 Pain Scale: Adult mb9 ED Course: 01/18 22:36 Patient arrived in ED. ja2 22:42 Tobi Pitts PA is PHCP. cp 22:42 Tboi Contreras MD is Attending Physician. cp 22:46 Triage completed. mb9 22:48 Arm band placed on. mb9 22:48 Patient has correct armband on for positive identification. Bed in low position. Call ha1 light in reach. Side rails up X 1. Adult w/ patient. 23:24 Norma Cool, RN is Primary Nurse. 1 01/19 00:48 No provider procedures requiring assistance completed. Patient did not have IV access ha1 during this emergency room visit. Administered Medications: 01/18 23:55 Drug: HYDROmorphone IM 1 mg Route: IM; Site: right ventrogluteal; ha1 01/19 00:20 Follow up: Response: No adverse reaction; Pain is decreased; RASS: Alert and Calm (0) 1 01/18 23:55 Drug: Ketorolac IM 30 mg Route: IM; Site: right deltoid; ha1 01/19 00:45 Follow up: Response: No adverse reaction ha1 00:00 Drug: Dexamethasone IM 10 mg Route: IM; Site: left ventrogluteal; ha1 00:20 Follow up: Response: No adverse reaction ha1 00:14 Drug: Lidoderm Topical Patch 5 % (700 mg/patch) 1 patches {Note: Lidocaine patch was ha1 administered as instructed by care provider. Lidoderm not in inventory..} Route: Topical; Site: right upper arm; 00:47 Follow up: Response: No adverse reaction ha1 Medication: 00:49 VIS not applicable for this client. ha1 Outcome: 00:19 Discharge ordered by MD. cp 00:48 Discharged to home ambulatory, with family. ha1 00:48 Condition: stable 00:48 Discharge instructions given to patient, family, Instructed on discharge instructions, follow up and referral plans. medication usage, Demonstrated understanding of instructions, follow-up care, medications, Prescriptions given X 2. 00:51 Patient left the ED. ha1 Signatures: Tobi Pitts PA PA cp Alexander, Jessica ja2 Ayala, Heidy RN RN ha1 Helen Hahn RN RN mb9 Corrections: (The following items were deleted from the chart) 01/18 22:47 22:46 PMHx: None; mb9 mb9
[2023-01-19 02:20] VITALS: TEMP 98.8; O2SAT 98
[2023-01-19 02:27] VITALS: BP 111/81
== END 2023-01-19 00:51 | disposition home or self-care (01) ==
LOC: ER 22:33
DX: M54.16 Radiculopathy, lumbar region (principal)
CPT/HCPCS: 81001; 81025; J1100; J1170; J2001